=== PATIENT | male | born 1960 | race Caucasian/White ===

== ENCOUNTER 2017-05-06 16:09 | Inpatient (IN) | payer BC ==
[~2017-05-06] VITALS: Ht 167.6 cm; Wt 87.1 kg
[~2017-05-06 16:09] MED LIST: ASPIRIN325 MG PO; AUGMENTIN 875 M1 TAB PO; BACTRIM DS 8001 TA1 PO; CALCIUM500 MG PO; CRESTOR20 MG PO; EPA/GLA1 SGL PO; FLOMAX0.4 MG PO; HYDR25T PO; IBUPROFEN800 MG PO; KEFLEX500 M1 PO; LISINOPRIL10 MG PO; MOTRIN800 MG PO; OXYBUTYNIN5 MG PO; PRILOSEC20 M1 PO; PROTONIX40 MG PO; TRICOR145 MG PO
[2017-05-06 16:28] VITALS: BP 155/92
[2017-05-06 17:04] LABS: BASO % 0.9 % (0.0-1.0); EOS # 0.1 10*3/uL (0.0-0.4); EOS % 2.1 % (1.0-4.0); HEMOGLOBIN 12.6 g/dl (14.0-18.0); LYMPH # 0.9 10*3/uL (1.3-4.4); LYMPH % 21.9 % (27.0-41.0); MEAN CELL VOLUME 86.2 fl (80.0-94.0); MEAN CORPUSCULAR HGB 29.4 pg (27.0-31.0); MEAN CORPUSCULAR HGB CONC 34.1 g/dl (33.0-37.0); MONO # 0.5 10*3/uL (0.1-1.0); MONO % 12.7 % (3.0-9.0); NEUT # 2.6 10*3/uL (2.3-7.9); NEUT % 61.7 % (47.0-73.0); PLATELET COUNT AUTOMATED 211 10*3/uL (130-400); RED BLOOD COUNT 4.29 10*6/uL (4.50-5.90); RED CELL DISTRI WIDTH 12.8 % (0-14.5); WHITE BLOOD COUNT 4.3 10*3/uL (4.8-10.8)
[2017-05-06 17:20] LABS: ALBUMIN 3.2 gm/dl (3.1-4.5); ALKALINE PHOSPHATASE 115 U/L (45-117); BUN 14 mg/dl (7-24); CHLORIDE 96 mmol/L (98-107); CREATININE 0.92 mg/dL (0.70-1.30); SGOT/AST 29 IU/L (3-35); SGPT/ALT 46 U/L (12-78); SODIUM 131 mmol/L (136-145); TOTAL PROTEIN 7.3 gm/dL (6.4-8.2)
[2017-05-06 17:56] LABS: BILIRUBIN NEGATIVE (NEGATIVE); BLOOD 2+ (NEGATIVE); CLARITY CLEAR (CLEAR); COLOR YELLOW (YELLOW); GLUCOSE 3+ (NEGATIVE); KETONE NEGATIVE (NEGATIVE); LEUKO ESTERASE NEGATIVE (NEGATIVE); NITRITE NEGATIVE (NEGATIVE); PH 5.5 (5.0-9.0); UROBILINOGEN 0.2 E.U./dl (0.2-1.0)
[2017-05-06 18:03] LABS: BACTERIA TRACE; EPITHELIAL CELLS 0-2; MUCOUS 1+
[2017-05-06 18:04] VITALS: BP 118/69
[2017-05-06 19:53] VITALS: BP 174/78
--- NOTE | 2017-05-06 20:56 | NUR ---
REPORT FROM [facility] AT THIS TIME
--- NOTE | 2017-05-06 21:15 | NUR ---
A 56, admitted to , under the services of ZEINAB Hubbard MD with a diagnosis of VIRAL SYNDROME,DIABETES . Chief complaint is COLD. Patient arrived via stretcher from ER. Monitor applied. Initial assessment completed. Vital signs taken and recorded. ZEINAB HUBBARD MD notified of admission to the unit. Orders received. See assessment for past medical history, medications and allergies. Patient and/or family oriented to unit. [facility] visitation policy reviewed. Clothing/patient valuable form completed. VIRGIL HYATT
[2017-05-06 21:24] VITALS: BP 120/89
--- NOTE | 2017-05-06 21:30 | NUR ---
PATIENT STATES HIS KNOWS HIS MEDICATIONS AND SHOULD BE HERE SOMETIME TONIGHT.
[2017-05-06] MEDS ORDERED: NEURONTIN300 MG PO (22:25)
--- NOTE | 2017-05-06 22:59 | NUR ---
PATIENT MEDICATED WITH PRN TYLENOL FOR C/O HEADACHE RATED 3/10 ON A 0/10 PAIN SCALE AND A TEMPERATURE OF 99.0
[2017-05-06 23:02] VITALS: BP 120/89
[2017-05-07] VITALS: BP 122/88
--- NOTE | 2017-05-07 00:04 | NUR ---
MEDICATION EFFECTIVE PER PATIENT
--- NOTE | 2017-05-07 01:41 | NUR ---
PATIENT MEDICATED WITH PRN NORCO FOR HEADACHE RATED 5/10 ON A 0/10 PAIN SCALE
--- NOTE | 2017-05-07 01:53 | NUR ---
24 HR chart check completed.
--- NOTE | 2017-05-07 05:57 | NUR ---
PATIENT MEDICATED WITH PRN TYLENOL FOR TEMP OF 100.8
[2017-05-07 06:33] LABS: HEMATOCRIT 35.4 % (42.0-52.0); HEMOGLOBIN 12.2 g/dl (14.0-18.0); MEAN CELL VOLUME 85.9 fl (80.0-94.0); MEAN CORPUSCULAR HGB 29.6 pg (27.0-31.0); MEAN CORPUSCULAR HGB CONC 34.5 g/dl (33.0-37.0); MEAN PLATELET VOLUME 9.3 fl (9.6-12.3); PLATELET COUNT AUTOMATED 212 10*3/uL (130-400); RED BLOOD COUNT 4.12 10*6/uL (4.50-5.90); WHITE BLOOD COUNT 7.4 10*3/uL (4.8-10.8)
[2017-05-07 06:53] LABS: BASOPHILS 2 % (0-1); TOTAL CELLS COUNTED 100 #CELLS
[2017-05-07 06:54] LABS: PLATELET SUFFICIENCY NORMAL (NORMAL)
[2017-05-07 07:06] LABS: BUN 11 mg/dl (7-24); CHLORIDE 102 mmol/L (98-107); CHOLESTEROL 143 mg/dL (<200); CREATININE 0.68 mg/dL (0.70-1.30); HDL CHOLESTEROL 26 mg/dl (40-60); LDL CHOLESTEROL 63 mg/dL (9-159); MAGNESIUM 1.5 mg/dL (1.5-2.1); PHOSPHOROUS 2.5 mg/dL (2.5-4.9); POTASSIUM 4.2 mmol/L (3.5-5.1); SODIUM 136 mmol/L (136-145); TRIGLYCERIDES 269 mg/dl (<150); VLDL CHOLESTEROL 54 mg/dL (6-40)
[2017-05-07 07:32] LABS: VITAMIN D, 25-HYDROXY 17.8 ng/mL (30-100)
[2017-05-07 08:00] VITALS: BP 130/80
--- NOTE | 2017-05-07 08:30 | NUR ---
Office Services Representative in to talk to patient. Patient states lives at HOME with HIS . There are 4 steps in the home. Physician: DR BROWN Pharmacy: [facility] [place] Home health services: NONE Patient's level of ADLs: INDEPENDENT Patient has working utilities: YES DME: NONE Follow-up physician's appointment after d/c: PREFERS TO MAKE HIS OWN APPT Does patient want to access PORTAL?: Discharge plan HOME. MARTINEZ TAYLOR
[2017-05-07 12:00] VITALS: BP 133/79
[2017-05-07 16:00] VITALS: BP 147/94
[2017-05-07 20:00] VITALS: BP 152/89
--- NOTE | 2017-05-07 20:00 | NUR ---
PATIENT MEDICATED WITH TYLENOL PER PRN ORDER FOR C/O ELEVATED TEMP OF 102.8 ALSO C/O HEADACHE AND NECK PAIN. SEE EMAR. REINFORCED USE OF CALL LIGHT.
--- NOTE | 2017-05-07 21:07 | NUR ---
NORCO GIVEN FOR C/O HEADACHE. PAIN HAS DECREASED FROM 10/10 TO 7/10 WITH 10 BEING THE WORST.
--- NOTE | 2017-05-07 22:00 | NUR ---
TEMP HAS DECREASE FROM 102.8 TO 100 . PATIENT RESTING QUIETLY. NO FURTHER C/O VOICED.
[2017-05-08] VITALS: BP 115/61
--- NOTE | 2017-05-08 00:07 | NUR ---
ROBITUSSIN AC GIVEN PER PRN ORDER FOR C/O COUGH. SEE EMAR. REINFORCED USE OF CALL LIGHT.
[2017-05-08 06:46] LABS: BASO # 0.1 10*3/uL (0.0-0.1); BASO % 0.5 % (0.0-1.0); EOS # 0.1 10*3/uL (0.0-0.4); EOS % 0.5 % (1.0-4.0); HEMATOCRIT 34.5 % (42.0-52.0); HEMOGLOBIN 11.7 g/dl (14.0-18.0); LYMPH # 3.1 10*3/uL (1.3-4.4); LYMPH % 33.3 % (27.0-41.0); MEAN CELL VOLUME 86.5 fl (80.0-94.0); MEAN CORPUSCULAR HGB 29.3 pg (27.0-31.0); MEAN CORPUSCULAR HGB CONC 33.9 g/dl (33.0-37.0); MEAN PLATELET VOLUME 9.4 fl (9.6-12.3); MONO # 0.9 10*3/uL (0.1-1.0); MONO % 9.4 % (3.0-9.0); NEUT # 5.2 10*3/uL (2.3-7.9); NEUT % 55.7 % (47.0-73.0); PLATELET COUNT AUTOMATED 236 10*3/uL (130-400); RED BLOOD COUNT 3.99 10*6/uL (4.50-5.90); RED CELL DISTRI WIDTH 12.9 % (0-14.5); WHITE BLOOD COUNT 9.4 10*3/uL (4.8-10.8)
--- NOTE | 2017-05-08 07:30 | NUR ---
ASSUMED CARE OF PT AT THIS TIME, RESTING IN BED WITH EYES OPEN, RESPS EASY AND NONLABORED WITH NO S/S OF DISTRESS CALL LIGHT WITH IN REACH
[2017-05-08 08:00] VITALS: BP 108/50
--- NOTE | 2017-05-08 09:15 | NUR ---
PT C/O H/A AND PT ALSO HAD A INCREASED TEMP AT 100.0, ADMINSITERED TYLENOL 650MG PO PRN PER ORDERS, WILL MONITOR EFFECTS
--- NOTE | 2017-05-08 10:30 | NUR ---
PT REPORTS THAT TYLENOL EFFECTIVE AT THIS TIME, TEMP HAS DECREASED WELL AT THIS TIME
[2017-05-08 12:00] VITALS: BP 107/66
--- NOTE | 2017-05-08 12:51 | NUR ---
CONSULT CALLED TO OFFICE, SPOKE WITH AZAEL
--- NOTE | 2017-05-08 13:25 | NUR ---
RADIOLOGY CALLED AND STATED THAT LP COULD NOT BE DONE R/T PT HAVING ASA AND LOVENOX INJECTION ORDERED BEFORE PROCEDURE WAS ORDERED. NOTIFIED DR. VIERA OF CALL WITH RADIOLOGY DEPT.
--- NOTE | 2017-05-08 13:38 | NUR ---
CALL PLACED TO PHARMACY AWAITING 1400 MEDICATION
[2017-05-08 13:51] LABS: ACT PARTIAL THROMBO TIME 30.3 SECONDS (20.8-31.5)
[2017-05-08 16:00] VITALS: BP 117/76
--- NOTE | 2017-05-08 19:50 | NUR ---
PT. AWAKE, ALERT AND ORIENTED X 3. PT. IN BED WITH CALL LIGHT WITHIN REACH, WHEELS LOCKED, BED IN LOWEST POSITION. PT. C/O DRY COUGH AND REQUESTED PRN ROBITUSSIN. SEE SHIFT ASSESSMENT.
[2017-05-08 20:00] VITALS: BP 116/68; BP 130/92
--- NOTE | 2017-05-08 23:30 | NUR ---
RESTING IN BED WITH EYES CLOSED; APPEARS TO BE SLEEPING. CALL LIGHT WITHIN REACH.
[2017-05-09] VITALS: BP 132/80
--- NOTE | 2017-05-09 00:50 | NUR ---
AWAKE & SITTING UP IN BED. SKIN WARM & DRY. HEP LOCK INTACT TO RIGHT ANTECUBITAL; SITE ASYMPTOMATIC. LUNGS CLEAR WITH NO COUGH NOTED. ABDOMEN OBESE WITH NORMOACTIVE BOWEL SOUNDS. NO EDEMA NOTED. PT. VOICES NO C/O AT THIS TIME. CALL LIGHT WITHIN REACH.
--- NOTE | 2017-05-09 05:49 | NUR ---
MEDICATED WITH COUGH MEDICATION PER PT'S REQUEST.
[2017-05-09 06:20] LABS: BASO % 0.5 % (0.0-1.0); EOS # 0.2 10*3/uL (0.0-0.4); EOS % 2.2 % (1.0-4.0); HEMATOCRIT 33.1 % (42.0-52.0); HEMOGLOBIN 11.3 g/dl (14.0-18.0); LYMPH # 2.9 10*3/uL (1.3-4.4); LYMPH % 39.2 % (27.0-41.0); MEAN CELL VOLUME 87.8 fl (80.0-94.0); MEAN CORPUSCULAR HGB CONC 34.1 g/dl (33.0-37.0); MEAN PLATELET VOLUME 9.4 fl (9.6-12.3); MONO # 0.6 10*3/uL (0.1-1.0); MONO % 8.6 % (3.0-9.0); NEUT # 3.6 10*3/uL (2.3-7.9); NEUT % 48.7 % (47.0-73.0); PLATELET COUNT AUTOMATED 249 10*3/uL (130-400); RED BLOOD COUNT 3.77 10*6/uL (4.50-5.90); RED CELL DISTRI WIDTH 13.1 % (0-14.5); WHITE BLOOD COUNT 7.4 10*3/uL (4.8-10.8)
[2017-05-09 06:31] LABS: ALBUMIN 2.8 gm/dl (3.1-4.5); ALKALINE PHOSPHATASE 123 U/L (45-117); BUN 12 mg/dl (7-24); CHLORIDE 104 mmol/L (98-107); CREATININE 0.54 mg/dL (0.70-1.30); SGOT/AST 15 IU/L (3-35); SGPT/ALT 31 U/L (12-78); SODIUM 138 mmol/L (136-145)
[2017-05-09 08:00] VITALS: BP 116/80
[2017-05-09 10:18] LABS: CLARITY CLEAR
[2017-05-09 10:19] LABS: COLOR COLORLESS
[2017-05-09 10:22] LABS: CSF RBC < 1000 /uL; CSF WBC 2 /uL
[2017-05-09 10:27] LABS: CSF GLUCOSE 74 mg/dL (40-70); CSF TOTAL PROTEIN 91.4 mg/dL (15-45)
--- NOTE | 2017-05-09 10:39 | NUR ---
Nutritional Support Services Note: Discussed with pt and pts 1800cal diabetic diet. Diet copy given. very supportive. Pt drinks a lot of sweet tea daily- encouraged healthier choices. Encouraged compliance to diet and f/u if needed. China Burgos
--- NOTE | 2017-05-09 11:31 | NUR ---
CALLED DR VIERA TO VERIFY IF PATIENT CAN IN FACT GO FOR HIS MRI, PATIENT HAS ONLY BEEN BACK FROM LUMBAR PUNCTURE FOR ONE AND HALF HOURS, DR CASTRO ADVISED THAT IF PATIENT IS WELL HYDRATED AND NURSES TRANSFER PATIENT THAT IT WILL BE FINE FOR PATIENT TO GO FOR MRI
[2017-05-09 12:00] VITALS: BP 124/69
[2017-05-09 12:19] LABS: CSF LYMPHOCYTES 84 % (40-80); CSF MONOCYTES 8 % (15-45)
[2017-05-09] MEDS ORDERED: GLUCOPHAGE500 MG PO (15:35)
[2017-05-09] MEDS ORDERED: VITAMIN D31000 UNIT PO (15:35)
[2017-05-09] MEDS ORDERED: TESSALON PERLE100 MG PO (15:38)
[2017-05-09 16:00] VITALS: BP 123/77
--- NOTE | 2017-05-09 16:03 | NUR ---
PATIENT DISCHARGED HOME LEFT WITH HIS HEP LOCK REMOVED NEW MEDICATIONS REVIEWED WITH PATIENT
[2017-05-11 16:05] LABS: HSV-2 DNA Negative (Negative)
== END 2017-05-09 16:03 | disposition home or self-care (01) | DRG 872 ==
LOC: ED 16:09 → 5E 19:48 → EDHOLD 19:48 → 5E 20:05
PROVIDERS: Emergency Medicine; Internal Medicine; Internal Medicine Hospice and Palliative Medicine; Student in an Organized Health Care Education/Training Program; ADMIT Internal Medicine
DX: A41.9 Sepsis, unspecified organism (principal); A87.9 Viral meningitis, unspecified; E87.8 Other disorders of electrolyte and fluid balance, not elsewhere classified; E44.1 Mild protein-calorie malnutrition; I10 Essential (primary) hypertension; E11.9 Type 2 diabetes mellitus without complications; D64.9 Anemia, unspecified; B34.9 Viral infection, unspecified; R65.20 Severe sepsis without septic shock; R31.9 Hematuria, unspecified; F17.210 Nicotine dependence, cigarettes, uncomplicated; J00 Acute nasopharyngitis [common cold]; N40.1 Benign prostatic hyperplasia with lower urinary tract symptoms; R35.0 Frequency of micturition; E78.2 Mixed hyperlipidemia; E55.9 Vitamin D deficiency, unspecified; Z80.42 Family history of malignant neoplasm of prostate; Z83.3 Family history of diabetes mellitus; Z80.1 Family history of malignant neoplasm of trachea, bronchus and lung; Z79.899 Other long term (current) drug therapy; Z71.6 Tobacco abuse counseling; Z79.82 Long term (current) use of aspirin; Z68.30 Body mass index [BMI] 30.0-30.9, adult

== ENCOUNTER → 2017-09-02 | Outpatient (CLI) | payer BC ==
[~2017-09-02] MED LIST changes: +GLUCOPHAGE500 MG PO; +NEURONTIN300 MG PO; +TESSALON PERLE100 MG PO; +VITAMIN D31000 UNIT PO
== END | disposition home or self-care (01) ==
LOC: RAD 18:36
DX: M47.896 Other spondylosis, lumbar region (principal); M54.40 Lumbago with sciatica, unspecified side

== ENCOUNTER 2018-02-17 12:10 | Emergency (ER) | payer BC ==
[~2018-02-17] VITALS: Ht 170.1 cm; Wt 83.9 kg
[2018-02-17] MEDS ORDERED: CYCLOBENZAPRINE10 MG PO (12:38)
[2018-02-17] MEDS ORDERED: PREDNISONE20 M1 PO (12:38)
[2018-02-17] MEDS ORDERED: NAPROSYN500 MG PO (12:38)
== END 2018-02-17 13:15 | disposition home or self-care (01) ==
LOC: ED 12:10
DX: M54.30 Sciatica, unspecified side (principal); F17.210 Nicotine dependence, cigarettes, uncomplicated; Z79.899 Other long term (current) drug therapy

== ENCOUNTER → 2019-06-25 | Outpatient (CLI) | payer BC ==
[~2019-06-25] MED LIST changes: +CYCLOBENZAPRINE10 MG PO; +NAPROSYN500 MG PO; +PREDNISONE20 M1 PO
== END | disposition home or self-care (01) ==
LOC: RAD 12:11
DX: M43.17 Spondylolisthesis, lumbosacral region (principal); M85.88 Other specified disorders of bone density and structure, other site

== ENCOUNTER → 2019-07-07 | Outpatient (CLI) | payer BC ==
[2019-07-08 08:12] LABS: PROSTATE SPECIFIC AG, SERUM 2.1 ng/mL (0.0-4.0)
[2019-07-08 09:07] LABS: PROSTATE SPECIFIC AG FREE 0.49 ng/mL
== END | disposition home or self-care (01) ==
LOC: LAB 10:39
PROVIDERS: Urology
DX: R97.20 Elevated prostate specific antigen [PSA] (principal)

== ENCOUNTER → 2019-10-14 | Outpatient (CLI) | payer BC ==
[2019-10-14 11:20] LABS: BUN 18 mg/dl (7-24); CHLORIDE 105 mmol/L (98-107); CREATININE 0.85 mg/dL (0.70-1.30); POTASSIUM 3.8 mmol/L (3.5-5.1); SODIUM 138 mmol/L (136-145)
[2019-10-16 00:06] LABS: TESTOSTERONE FREE, (DIRECT) 5.3 pg/mL (6.6-18.1)
== END | disposition home or self-care (01) ==
LOC: LAB 09:31
PROVIDERS: Internal Medicine
DX: E29.1 Testicular hypofunction (principal)

== ENCOUNTER → 2019-12-20 | Outpatient (CLI) | payer BC | END | disposition home or self-care (01) | LOC: LAB 09:43 | DX: N40.1 Benign prostatic hyperplasia with lower urinary tract symptoms (principal) ==

== ENCOUNTER → 2023-01-09 | Outpatient (CLI) | payer OTHER | END | disposition home or self-care (01) | LOC: US 01:55 | PROVIDERS: ATTEND Internal Medicine Nephrology | DX: N28.1 Cyst of kidney, acquired (principal); N17.9 Acute kidney failure, unspecified ==

== ENCOUNTER → 2023-05-16 | Outpatient (CLI) | payer OTHER | END | disposition home or self-care (01) | LOC: LAB 13:17 | PROVIDERS: ATTEND Internal Medicine | DX: S20.362A Insect bite (nonvenomous) of left front wall of thorax, initial encounter (principal); Y93.89 Activity, other specified; Y92.89 Other specified places as the place of occurrence of the external cause; Y99.8 Other external cause status ==

== ENCOUNTER → 2023-12-11 | Outpatient (CLI) | payer OTHER | END | disposition home or self-care (01) | LOC: RESCLI 10:11 | PROVIDERS: ATTEND Internal Medicine | DX: E11.9 Type 2 diabetes mellitus without complications (principal); R39.15 Urgency of urination; N40.0 Benign prostatic hyperplasia without lower urinary tract symptoms; E78.5 Hyperlipidemia, unspecified; Z00.00 Encounter for general adult medical examination without abnormal findings; I10 Essential (primary) hypertension; E78.1 Pure hyperglyceridemia; Z79.899 Other long term (current) drug therapy; Z88.8 Allergy status to other drugs, medicaments and biological substances; Z98.890 Other specified postprocedural states ==